=== PATIENT | male | born 1935 | race Caucasian/White ===

== ENCOUNTER 2020-10-07 14:02 | Inpatient (IN) | payer MEDICARE ==
[2020-10-07] MEDS ORDERED: Acetaminophen 325 MG Suppository ONE (14:11)
[2020-10-07] MEDS ORDERED: Cefepime 2 GM VIAL ONE (14:11)
[2020-10-07 14:29] LABS: Bilirubin 1+ (Negative); Blood, Urine 50 (Negative); Clarity Slightly Cloudy (Clear); Glucose, Urine (Dipstick) Normal (Negative); Ketone, Urine 5 mg/dL (Negative); Leukocyte 25 (Negative); Nitrite Negative (Negative); Protein, Urine (Dipstick) 100 mg/dl (Neg-Trace)
[2020-10-07 14:42] LABS: #Monocytes 0.9 10x3/uL (0.0-1.1); #Neutrophils 3.9 10x3/uL (1.5-8.4); %Basophils 0.4 % (0.0-2.0); %Eosinophils 0.3 % (0.0-6.0); %Monocytes 13.4 % (0.0-10.0); %Neutrophils 55.6 % (40.0-75.0); Hemoglobin 11.9 g/dL (13.5-17.5); Mean Corpuscular HGB CONC 33.9 g/dL (32.0-36.0); Mean Corpuscular Hemoglobin 31.4 pg (27.0-33.0); Mean Corpuscular Volume 92.6 fl (81.2-95.1); Mean Platelet Volume 12.5 fl (7.4-10.4); Platelet Count 86 10x3/uL (150-450); RBC Distribution Width 15.5 % (11.5-14.5); Red Blood Cell (RBC) Count 3.79 10x6/uL (4.32-5.72)
[2020-10-07 14:42] LABS: Squamous Epithelial None Seen HPF (0-3); WBC/HPF 0-3 HPF (0-3)
[2020-10-07 14:43] LABS: Bacteria/HPF Rare-Few HPF (None Seen); Mucous/LPF 1+ LPF (<2+); Transitional Epithelial 0-3 HPF (None Seen)
[2020-10-07 14:49] LABS: Acetaminophen Less than 6.0 mcg/mL (10.0-30.0); Alcohol Less than 10 mg/dL (Less than 10); CK (CPK) 75 U/L (30-200); Salicylate Less than 8.0 mg/dL (15.0-30.0)
[2020-10-07 14:51] LABS: ALT (SGPT) 19 U/L (8-55); AST (SGOT) 33 U/L (5-34); Albumin 3.4 g/dL (3.4-4.8); Alkaline Phosphatase 89 U/L (40-110); Anion Gap 17 mmol/L (10-20); BUN (Urea Nitrogen) 25 mg/dL (8.4-25.7); Bilirubin, Total 2.3 mg/dL (0.2-1.2); Calc. Creatinine Clearance 0 mL/min (70-130); Carbon Dioxide 21 mmol/L (23-31); Chloride 107 mmol/L (98-107); Globulin 2.5 g/dL (2.4-3.5); Glucose 144 mg/dL (83-110); Potassium 4.2 mmol/L (3.5-5.1); Protein, Total 5.9 g/dL (5.8-8.1); Sodium 141 mmol/L (136-145)
[2020-10-07 14:53] LABS: INR-International Normal Ratio 1.3; PTT 28.4 sec (22.0-33.0)
[2020-10-07 15:07] LABS: Large Platelets SLIGHT; Platelet Morphology Comment Appears Decreased; RBC Morphology Normal
[2020-10-07 15:14] LABS: CKMB 0.8 ng/mL (0-6.6)
[2020-10-07] MEDS ORDERED: Aspirin 325 MG TAB ONE (15:54)
[2020-10-07 17:20] LABS: Lactic Acid 0.9 mmol/L (0.5-2.2)
[2020-10-07] MEDS ORDERED: Acetaminophen 325 MG TAB PO PRN ×2 (17:21→18:53)
[2020-10-07] MEDS ORDERED: Senokot S 8.6-50 MG TAB PO PRN ×2 (17:21→18:53)
[2020-10-07] MEDS ORDERED: Ondansetron PF 4 MG/2 ML Vial IVP PRN ×2 (17:21→18:53)
[2020-10-07] MEDS ORDERED: Sodium Chloride 0.9% 1,000 ML IV SCH ×2 (18:00→18:30)
[2020-10-07] MEDS ORDERED: HumaLOG 300 UNITS/3 ML VIAL SC PRN ×2 (18:14→18:54)
[2020-10-07] MEDS ORDERED: Dextrose 50% Abboject 50 ML SYRINGE SLOW IVP PRN ×2 (18:14→18:54)
[2020-10-07] MEDS ORDERED: Dextrose 5% in Water 1,000 ML IV PRN ×2 (18:14→18:54)
[2020-10-07 18:19] LABS: CKMB 1.2 ng/mL (0-6.6)
[2020-10-07 19:07] VITALS: BMI 25.0
[2020-10-07] MEDS ORDERED: Simvastatin 20 MG TAB PO SCH (21:00)
[2020-10-07] MEDS ORDERED: Apixaban 5 MG TAB PO SCH (21:00)
[2020-10-07] MEDS: Apixaban 5 MG TAB PO SCH (22:00)
[2020-10-07] MEDS: Atorvastatin Calcium 10 MG TAB PO SCH (22:00)
[2020-10-08] MEDS ORDERED: Levothyroxine Sodium 50 MCG TAB PO SCH ×4 (06:00→07:00)
[2020-10-08] MEDS: cefTRIAXone\\ROCEPHIN 1 GM in Sodium Chloride 0.9% 100 ML IVPB SCH (08:19)
[2020-10-08] MEDS: Levothyroxine Sodium 50 MCG TAB PO SCH (08:20)
[2020-10-08] MEDS: Apixaban 5 MG TAB PO SCH ×2 (08:20→22:37)
[2020-10-08] MEDS: Aspirin 81 mg Enteric Coated Tablet PO SCH (08:20)
[2020-10-08] MEDS ORDERED: Aspirin 81 mg Enteric Coated Tablet PO SCH (09:00)
[2020-10-08] MEDS ORDERED: LEVOTHYROXINE SODIUM 25 MCG PO SCH (09:00)
[2020-10-08 09:12] LABS: #Monocytes 0.8 10x3/uL (0.0-1.1); #Neutrophils 3.8 10x3/uL (1.5-8.4); %Basophils 0.2 % (0.0-2.0); %Eosinophils 0.3 % (0.0-6.0); %Lymphocytes 20.3 % (18.0-47.0); %Monocytes 13.3 % (0.0-10.0); %Neutrophils 65.6 % (40.0-75.0); Mean Corpuscular HGB CONC 32.7 g/dL (32.0-36.0); Mean Corpuscular Hemoglobin 31.9 pg (27.0-33.0); Mean Corpuscular Volume 97.4 fl (81.2-95.1); Mean Platelet Volume 12.4 fl (7.4-10.4); Platelet Count 50 10x3/uL (150-450); RBC Distribution Width 15.5 % (11.5-14.5); Red Blood Cell (RBC) Count 3.45 10x6/uL (4.32-5.72); White Blood Cell (WBC) Count 5.7 10x3/uL (3.5-10.5)
[2020-10-08 09:18] LABS: ALT (SGPT) 20 U/L (8-55); AST (SGOT) 33 U/L (5-34); Albumin 3.4 g/dL (3.4-4.8); Alkaline Phosphatase 89 U/L (40-110); Anion Gap 15 mmol/L (10-20); BUN (Urea Nitrogen) 28 mg/dL (8.4-25.7); Bilirubin, Total 1.7 mg/dL (0.2-1.2); CK (CPK) 110 U/L (30-200); Calc. Creatinine Clearance 39 mL/min (70-130); Calcium 8.2 mg/dL (7.8-10.44); Carbon Dioxide 24 mmol/L (23-31); Chloride 107 mmol/L (98-107); Globulin 2.7 g/dL (2.4-3.5); Glucose 101 mg/dL (83-110); Potassium 3.6 mmol/L (3.5-5.1); Protein, Total 6.1 g/dL (5.8-8.1); Sodium 142 mmol/L (136-145)
[2020-10-08] MEDS ORDERED: cefTRIAXone\\ROCEPHIN 1 GM in Sodium Chloride 0.9% 100 ML IVPB SCH (10:00)
[2020-10-08 13:42] LABS: SARS-CoV-2 PCR by NAA Not Detected (NotDetected)
[2020-10-08] MEDS: Atorvastatin Calcium 10 MG TAB PO SCH (22:37)
[2020-10-09 05:52] LABS: #Eosinphils 0.1 10x3/uL (0.0-0.5); #Monocytes 0.7 10x3/uL (0.0-1.1); #Neutrophils 4.3 10x3/uL (1.5-8.4); %Basophils 0.6 % (0.0-2.0); %Lymphocytes 23.1 % (18.0-47.0); %Monocytes 11.1 % (0.0-10.0); %Neutrophils 63.9 % (40.0-75.0); Hemoglobin 11.9 g/dL (13.5-17.5); Mean Corpuscular HGB CONC 32.2 g/dL (32.0-36.0); Mean Corpuscular Hemoglobin 31.1 pg (27.0-33.0); Mean Corpuscular Volume 96.3 fl (81.2-95.1); Mean Platelet Volume 12.4 fl (7.4-10.4); Platelet Count 65 10x3/uL (150-450); RBC Distribution Width 15.6 % (11.5-14.5); Red Blood Cell (RBC) Count 3.83 10x6/uL (4.32-5.72); White Blood Cell (WBC) Count 6.7 10x3/uL (3.5-10.5)
[2020-10-09 06:15] LABS: ALT (SGPT) 26 U/L (8-55); AST (SGOT) 34 U/L (5-34); Albumin 3.4 g/dL (3.4-4.8); Alkaline Phosphatase 96 U/L (40-110); Anion Gap 17 mmol/L (10-20); BUN (Urea Nitrogen) 28 mg/dL (8.4-25.7); Bilirubin, Total 1.2 mg/dL (0.2-1.2); Calc. Creatinine Clearance 43 mL/min (70-130); Calcium 8.8 mg/dL (7.8-10.44); Carbon Dioxide 19 mmol/L (23-31); Chloride 109 mmol/L (98-107); Globulin 2.9 g/dL (2.4-3.5); Glucose 102 mg/dL (83-110); Protein, Total 6.3 g/dL (5.8-8.1); Sodium 141 mmol/L (136-145)
[2020-10-09] MEDS: cefTRIAXone\\ROCEPHIN 1 GM in Sodium Chloride 0.9% 100 ML IVPB SCH (08:43)
[2020-10-09] MEDS: Apixaban 5 MG TAB PO SCH ×2 (08:43→20:50)
[2020-10-09] MEDS: Aspirin 81 mg Enteric Coated Tablet PO SCH (08:43)
[2020-10-09] MEDS: Atorvastatin Calcium 10 MG TAB PO SCH (20:48)
[2020-10-10] MEDS: Levothyroxine Sodium 50 MCG TAB PO SCH (05:29)
[2020-10-10 05:40] LABS: #Monocytes 0.6 10x3/uL (0.0-1.1); #Neutrophils 4.3 10x3/uL (1.5-8.4); %Basophils 0.7 % (0.0-2.0); %Eosinophils 0.5 % (0.0-6.0); %Lymphocytes 18.2 % (18.0-47.0); %Monocytes 9.5 % (0.0-10.0); %Neutrophils 70.9 % (40.0-75.0); Mean Corpuscular HGB CONC 32.3 g/dL (32.0-36.0); Mean Corpuscular Hemoglobin 31.1 pg (27.0-33.0); Mean Corpuscular Volume 96.4 fl (81.2-95.1); Mean Platelet Volume 12.6 fl (7.4-10.4); Platelet Count 77 10x3/uL (150-450); RBC Distribution Width 15.3 % (11.5-14.5); Red Blood Cell (RBC) Count 3.86 10x6/uL (4.32-5.72)
[2020-10-10 05:44] LABS: ALT (SGPT) 22 U/L (8-55); AST (SGOT) 29 U/L (5-34); Albumin 3.4 g/dL (3.4-4.8); Alkaline Phosphatase 93 U/L (40-110); Anion Gap 17 mmol/L (10-20); BUN (Urea Nitrogen) 26 mg/dL (8.4-25.7); Bilirubin, Total 1.3 mg/dL (0.2-1.2); CK (CPK) 83 U/L (30-200); Calc. Creatinine Clearance 45 mL/min (70-130); Calcium 8.6 mg/dL (7.8-10.44); Carbon Dioxide 22 mmol/L (23-31); Chloride 108 mmol/L (98-107); Glucose 119 mg/dL (83-110); Potassium 3.7 mmol/L (3.5-5.1); Protein, Total 6.4 g/dL (5.8-8.1); Sodium 143 mmol/L (136-145)
[2020-10-10] MEDS: Apixaban 5 MG TAB PO SCH (08:32)
[2020-10-10] MEDS: Aspirin 81 mg Enteric Coated Tablet PO SCH (08:32)
[2020-10-10] MEDS: cefTRIAXone\\ROCEPHIN 1 GM in Sodium Chloride 0.9% 100 ML IVPB SCH (08:34)
[2020-10-10] MEDS ORDERED: Furosemide 20 MG TAB PO SCH (09:00)
[2020-10-10] MEDS ORDERED: Carvedilol 3.125 MG TAB PO SCH ×2 (09:30→17:00)
[2020-10-10 12:16] VITALS: BP 121/74; TEMP 97.5
== END 2020-10-10 15:57 | disposition home or self-care (01) | DRG 923 ==
LOC: CSHERS 14:02 → CSHTELE 18:53
PROVIDERS: ADMIT Internal Medicine; ATTEND Internal Medicine
DX: T67.01XA Heatstroke and sunstroke, initial encounter (principal); I50.22 Chronic systolic (congestive) heart failure; I95.9 Hypotension, unspecified; Z66 Do not resuscitate; Z20.822 Contact with and (suspected) exposure to COVID-19; R77.8 Other specified abnormalities of plasma proteins; D69.6 Thrombocytopenia, unspecified; I25.10 Atherosclerotic heart disease of native coronary artery without angina pectoris; I11.0 Hypertensive heart disease with heart failure; I48.0 Paroxysmal atrial fibrillation; R31.9 Hematuria, unspecified; L55.1 Sunburn of second degree; R55 Syncope and collapse; Z95.2 Presence of prosthetic heart valve; Z95.810 Presence of automatic (implantable) cardiac defibrillator; Z96.653 Presence of artificial knee joint, bilateral; Z95.1 Presence of aortocoronary bypass graft; Z79.82 Long term (current) use of aspirin; Z79.899 Other long term (current) drug therapy; Z96.641 Presence of right artificial hip joint; E78.5 Hyperlipidemia, unspecified; Z86.010 Personal history of colon polyps
CPT/HCPCS: 36415; 36416; 51702; 70450; 71045; 80053; 80307; 81003; 81015; 82550; 82553; 82805; 83605; 83880; 84484; 85025; 85610; 85730; 87040; 87086; 87149; 87635; 93005; 94760; 96365; 96366; 96375; J0692; J0696; J3370; J3490; U0003; U0005